=== PATIENT | female | born 1960 | race African-American/Black ===

== ENCOUNTER 2017-01-16 08:21 | Emergency (ER) | payer BC ==
[~2017-01-16] VITALS: Ht 170.2 cm; Wt 59.0 kg
[2017-01-16 08:50] VITALS: BP 124/61
[2017-01-16] MEDS ORDERED: methylPREDNISolone ACETATE 80 MG/ML VIAL. INJ ONE (09:15)
[2017-01-16] MEDS ORDERED: METH4TAB2 PO (09:18)
--- NOTE | 2017-01-16 09:32 | PHYS DOC ---
Past Medical History Past Medical History: Other Additional Past Medical Histor: eczema Past Surgical History: Hysterectomy Alcohol Use: Heavy Drug Use: None Adult General Chief Complaint Chief Complaint: SKIN PROBLEM [facility] HPI Patient is a 56 year old female who presents with severe itching to her left hand. She states that this has been somewhat chronic problem for her entire life. 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 She did remove the ring. There is erythema to her ring finger where she has been scratching. She has been diagnosed with eczema and receives care at [facility]. She does have triamcinolone cream as well as clotrimazole in the room with her. She states that she has been using these medications without relief. Review of Systems Review of Systems Constitutional: Denies fever or chills [] Respiratory: Denies cough or shortness of breath [] Cardiovascular: No additional information not addressed in HPI [] Musculoskeletal: Denies back pain or joint pain [] Integument: See history of present illness Neurologic: Denies headache, focal weakness or sensory changes [] Current Medications Current Medications Current Medications Medications (Trade) Dose Ordered Sig/Juan Manuel Start Time Stop Time Status Last Admin Dose Admin Methylprednisolone Acetate (DEPO-Medrol 80MG VIAL) 80 mg 1X ONCE 01/16/17 09:15 01/16/17 09:17 DC Allergies Allergies Allergies Coded Allergies Type Severity Reaction Last Updated Verified aspirin Allergy Intermediate 01/16/17 Yes codeine Allergy Intermediate 01/16/17 Yes Physical Exam Physical Exam Constitutional: Well developed, well nourished, no acute distress, non-toxic appearance. [] Cardiovascular:Heart rate regular rhythm, no murmur [] Lungs & Thorax: Bilateral breath sounds clear to auscultation [] Skin: Warm, dry, there is some erythema and scratching noted to the fourth digit on her left hand, the third and fifth digit are also involved with some erythema mainly to the webbing between those fingers, there is no evidence of infection or breaks in the skin, there is some thickening to the skin on her fifth digit Neurologic: Alert and oriented X 3, normal motor function, normal sensory function, no focal deficits noted. [] Psychologic: Affect normal, judgement normal, mood normal. [] Current Patient Data Vital Signs Vital Signs Date Time Temp Pulse Resp B/P (MAP) Pulse Ox O2 Delivery O2 Flow Rate FiO2 01/16/17 08:50 97.7 80 16 100 Room Air 97.7 EKG EKG [] Radiology/Procedures Radiology/Procedures [] Course & Med Decision Making Course & Med Decision Making Pertinent Labs and Imaging studies reviewed. (See chart for details) 1. Contact dermatitis with eczema The patient has been instructed to try to keep from scratching the affected area. She is to watch for signs of infection or breaks in the skin. She may continue to use her appointments from [facility]. She was given a shot of steroids in the emergency Department as well as oral steroids to continue at home. She is to keep the skin clean and dry. She is to return to [facility] in 1 week for recheck or return to the ED if worsening. [] Dragon Disclaimer Dragon Disclaimer This electronic medical record was generated, in whole or in part, using a voice recognition dictation system. Departure Departure Impression: Primary Impression: Contact dermatitis and eczema Disposition: 01 HOME, SELF-CARE Condition: STABLE Patient Instructions: Eczema, Contact Dermatitis, [id number] Additional Instructions: Follow up with [facility] if not improving within 1 week or sooner if worsening. Scripts Methylprednisolone (MEDROL) 4 Mg Tab.ds.pk 1 PKG PO UD, #1 PKG Prov: CHYNA ARAYA APRN 01/16/17 CHYNA ARAYA APRN Jan 16, 2017 09:32
== END 2017-01-16 09:47 | disposition home or self-care (01) ==
LOC: ER 08:21
DX: L25.9 Unspecified contact dermatitis, unspecified cause (principal); Z88.6 Allergy status to analgesic agent; Z88.5 Allergy status to narcotic agent
CPT/HCPCS: 96372; 99283; J1040

== ENCOUNTER 2017-09-17 14:14 | Emergency (ER) | payer BC | END 2017-09-17 14:50 | disposition home or self-care (01) | LOC: ER 14:50 | DX: B36.9 Superficial mycosis, unspecified (principal); Z88.6 Allergy status to analgesic agent; Z88.5 Allergy status to narcotic agent; Z90.710 Acquired absence of both cervix and uterus | CPT/HCPCS: 99283 ==

== ENCOUNTER 2019-03-13 00:24 | Emergency (ER) | payer SELFPAY ==
[~2019-03-13] VITALS: Ht 170.2 cm; Wt 63.5 kg
[~2019-03-13 00:24] MED LIST: CLOT15CR4 TP; METH4TAB2 PO
[2019-03-13 00:28] VITALS: BP 126/81
--- NOTE | 2019-03-13 01:04 | PHYS DOC ---
Past Medical History Past Medical History: Other Additional Past Medical Histor: eczema Past Surgical History: Hysterectomy Alcohol Use: Heavy Drug Use: None Adult General Chief Complaint Chief Complaint: KNEE SWELLING HPI HPI Patient is a 58 year old female who presents to the due to chief complaint of right knee swelling. Patient states that the swelling isn't present for the last few days. Patient states that the swelling was worse yesterday but is better today. Patient denies any injury. Review of Systems Review of Systems Constitutional: Denies fever or chills [] Eyes: Denies change in visual acuity, redness, or eye pain [] HENT: Denies nasal congestion or sore throat [] Respiratory: Denies cough or shortness of breath [] Cardiovascular: No additional information not addressed in HPI [] GI: Denies abdominal pain, nausea, vomiting, bloody stools or diarrhea [] : Denies dysuria or hematuria [] Musculoskeletal: Complains of swelling and pain in the right knee Neurologic: Denies headache, focal weakness or sensory changes [] All other systems were reviewed and found to be within normal limits, except as documented in this note. Allergies Allergies Allergies Coded Allergies Type Severity Reaction Last Updated Verified aspirin Allergy Intermediate 01/16/17 Yes codeine Allergy Intermediate 01/16/17 Yes Physical Exam Physical Exam Constitutional: Well developed, well nourished, no acute distress, non-toxic appearance. [] HENT: Normocephalic, atraumatic Eyes: PERRLA, EOMI Neck: Normal range of motion, no tenderness, supple, no stridor. [] Cardiovascular:Heart rate regular rhythm, no murmur [] Lungs & Thorax: Bilateral breath sounds clear to auscultation [] Abdomen: Soft, no tenderness Extremities: Tenderness and swelling in the right knee. Right knee stable. Neurovascularly intact. Neurologic: Alert and oriented X 3 Current Patient Data Vital Signs Vital Signs Date Time Temp Pulse Resp B/P (MAP) Pulse Ox O2 Delivery O2 Flow Rate FiO2 03/13/19 00:28 97.4 68 16 126/81 (96) 99 Room Air 97.4 EKG EKG [] Radiology/Procedures Radiology/Procedures [] Course & Med Decision Making Course & Med Decision Making Ordered x-ray of the right knee. X-rays negative, patient to follow up with orthopedic surgery. Nurse informs me that patient has eloped from the ED. X-rays in the room to take x-ray of the right knee. Dragon Disclaimer Dragon Disclaimer This electronic medical record was generated, in whole or in part, using a voice recognition dictation system. Departure Departure Referrals: NO PCP (PCP) BLANE LAWRENCE DO Mar 13, 2019 01:04
== END 2019-03-13 00:50 | disposition home or self-care (01) ==
LOC: ER 00:24
DX: R22.42 Localized swelling, mass and lump, left lower limb (principal); M25.561 Pain in right knee; Z90.710 Acquired absence of both cervix and uterus; Z88.5 Allergy status to narcotic agent; Z88.6 Allergy status to analgesic agent
CPT/HCPCS: 99281

== ENCOUNTER 2019-04-16 13:34 | Emergency (ER) | payer SELFPAY ==
[~2019-04-16] VITALS: Ht 170.2 cm; Wt 63.5 kg
[2019-04-16 14:05] VITALS: BP 110/57
[2019-04-16] MEDS ORDERED: CIPR5DRO LEFT EAR (14:31)
--- NOTE | 2019-04-16 14:31 | PHYS DOC ---
Past Medical History Past Medical History: No Pertinent History, Other Additional Past Medical Histor: eczema Past Surgical History: Hysterectomy Alcohol Use: Heavy Drug Use: None Adult General Chief Complaint Chief Complaint: EARACHE/EAR PAIN HPI HPI Patient is a 58 year old female who presents with left ear pain has been ongoing since morning. She states the ear feels muffled and is tender when he touches the ear. She rates her pain as 8 out of 10 in severity and sharp. Review of Systems Review of Systems Constitutional: Denies fever or chills [] Eyes: Denies change in visual acuity, redness, or eye pain [] HENT: Reports L ear pain. Respiratory: Denies cough or shortness of breath [] Cardiovascular: No additional information not addressed in HPI [] GI: Denies abdominal pain, nausea, vomiting, bloody stools or diarrhea [] : Denies dysuria or hematuria [] Musculoskeletal: Denies back pain or joint pain [] Integument: Denies rash or skin lesions [] Neurologic: Denies headache, focal weakness or sensory changes [] Endocrine: Denies polyuria or polydipsia [] Complete systems were reviewed and found to be within normal limits, except as documented in this note. Allergies Allergies Allergies Coded Allergies Type Severity Reaction Last Updated Verified aspirin Allergy Intermediate 01/16/17 Yes codeine Allergy Intermediate 01/16/17 Yes Physical Exam Physical Exam Constitutional: Well developed, well nourished, no acute distress, non-toxic appearance. [] HENT: Normocephalic, atraumatic, L external ear canal is erythematous with exu date, oropharynx moist, no oral exudates, nose normal. [] Eyes: PERRLA, EOMI, conjunctiva normal, no discharge. [] Neck: Normal range of motion, no tenderness, supple, no stridor. [] Skin: Warm, dry, no erythema, no rash. [] Back: No tenderness, no CVA tenderness. [] Extremities: No tenderness, no cyanosis, no clubbing, ROM intact, no edema. [] Neurologic: Alert and oriented X 3, normal motor function, normal sensory function, no focal deficits noted. [] Psychologic: Affect normal, judgement normal, mood normal. [] Current Patient Data Vital Signs Vital Signs Date Time Temp Pulse Resp B/P (MAP) Pulse Ox O2 Delivery O2 Flow Rate FiO2 11/25/19 14:05 97.8 85 16 110/57 (74) 96 Room Air 97.8 EKG EKG [] Radiology/Procedures Radiology/Procedures [] Course & Med Decision Making Course & Med Decision Making Pertinent Labs and Imaging studies reviewed. (See chart for details) Will place on Cipro drops for otitis externa. Dragon Disclaimer Dragon Disclaimer This electronic medical record was generated, in whole or in part, using a voice recognition dictation system. Departure Departure Impression: Primary Impression: Otitis externa Disposition: HOME, SELF-CARE Condition: STABLE Referrals: NO PCP (PCP) Patient Instructions: Otitis Externa Additional Instructions: Thank you for visiting [facility]. We appreciate you trusting us with your care. If any additional problems come up don't hesitate to return to visit us. Please follow up with your primary care provider so they can plan additional care if needed and know about the problem that you had. If symptoms worsen come back to the Emergency Department. Any concerning symptoms that start such as chest pain, shortness of air, weakness or numbness on one side of the body, running high fevers or any other concerning symptoms return to the ER. You have been prescribed an antibiotic today to help fight your infection. Please take all of the antibiotic as directed. If after 48 hours the infection is not improving, please return for more care. If the infection worsens, return to ER for additional care. Scripts Ciprofloxacin Hcl (CILOXAN) 5 Ml Drops 3 DROP LEFT EAR BID for 10 Days, #5 ML Prov: RAJINDER MARINO APRN 04/16/19 Problem Qualifiers Primary Impression: Otitis externa Otitis externa type: unspecified type Chronicity: acute Laterality: left Qualified Codes: H60.502 - Unspecified acute noninfective otitis externa, left ear RAJINDER MARINO APRN Apr 16, 2019 14:31
== END 2019-04-16 14:38 | disposition home or self-care (01) ==
LOC: ER 13:34
DX: H60.92 Unspecified otitis externa, left ear (principal); Z88.5 Allergy status to narcotic agent; Z88.6 Allergy status to analgesic agent; Z90.710 Acquired absence of both cervix and uterus; F10.20 Alcohol dependence, uncomplicated; Y90.9 Presence of alcohol in blood, level not specified
CPT/HCPCS: 99283

== ENCOUNTER 2019-05-17 09:17 | Emergency (ER) | payer SELFPAY ==
[~2019-05-17] VITALS: Ht 162.6 cm; Wt 63.5 kg
[~2019-05-17 09:17] MED LIST changes: +CIPR5DRO LEFT EAR
[2019-05-17 09:59] VITALS: BP 115/68
--- NOTE | 2019-05-17 10:16 | PHYS DOC ---
Past Medical History Past Medical History: No Pertinent History, Other Additional Past Medical Histor: eczema Past Surgical History: Hysterectomy Alcohol Use: Heavy Drug Use: None Adult General Chief Complaint Chief Complaint: EARACHE/EAR PAIN [facility] HPI Patient is a 58 year old female who presents to the ED today reporting she cannot hear. Patient states she was diagnosed with ear infection around 2018. She reports she was put on Cipro eardrops. She states the told her ciprodex eardrops are eyedrops. It's unknown if she has been using the medicine. She states since then she's not been able to hear. She appears restless and not following directions well like she is on something. Review of Systems Review of Systems Constitutional: Denies fever or chills [] HENT: Reports inability to hear. Denies nasal congestion or sore throat [] Respiratory: Denies cough or shortness of breath [] Cardiovascular: No additional information not addressed in HPI [] GI: Denies abdominal pain, nausea, vomiting, bloody stools or diarrhea [] : Denies dysuria or hematuria [] Musculoskeletal: Denies back pain or joint pain [] Integument: Denies rash or skin lesions [] Neurologic: Denies headache, focal weakness or sensory changes [] All other systems were reviewed and found to be within normal limits, except as documented in this note. Allergies Allergies Allergies Coded Allergies Type Severity Reaction Last Updated Verified aspirin Allergy Intermediate 01/16/17 Yes codeine Allergy Intermediate 01/16/17 Yes Physical Exam Physical Exam Constitutional: Well developed, well nourished, no acute distress, non-toxic appearance. [] HENT: Normocephalic, atraumatic, bilateral external ears normal, oropharynx moist, no oral exudates, nose normal. [] Bilateral ear canals are swollen and narrowed, TM cannot be visualized, there is crusting this in the ear,. Eyes: PERRLA, EOMI, conjunctiva normal, no discharge. [] Neck: Normal range of motion, no tenderness, supple, no stridor. [] Cardiovascular:Heart rate regular rhythm, no murmur [] Lungs & Thorax: Bilateral breath sounds clear to auscultation [] Abdomen: Bowel sounds normal, soft, no tenderness, no masses, no pulsatile masses. [] Skin: Warm, dry, no erythema, no rash. [] Back: No tenderness, no CVA tenderness. [] Extremities: No tenderness, no cyanosis, no clubbing, ROM intact, no edema. [] Neurologic: Alert and oriented X 3, normal motor function, normal sensory function, no focal deficits noted. [] Psychologic: Restless, appears to be on something EKG EKG [] Radiology/Procedures Radiology/Procedures [] Course & Med Decision Making Course & Med Decision Making Pertinent Labs and Imaging studies reviewed. (See chart for details) This is a 58-year-old female patient presented to the ED today complaining she has not been able to hear since . She was diagnosed with otitis externa around 16 April. Patient states she's not been able to hear anything since then. She is very restless and he has to be on something. She seemed not to follow directions well. I even used paper and pen to communicate with her. Informed her I would recommend she follows up with ENT and promised to give her the phone number in her discharge paperwork. She stood up and stated she doesn't have insurance to see anyone and left Dragon Disclaimer Dragon Disclaimer This electronic medical record was generated, in whole or in part, using a voice recognition dictation system. Departure Departure Impression: Primary Impression: Otitis externa Disposition: AGAINST MEDICAL ADVICE Condition: STABLE Referrals: NO PCP (PCP) Problem Qualifiers Primary Impression: Otitis externa Otitis externa type: unspecified type Chronicity: acute Laterality: bilateral Qualified Codes: H60.503 - Unspecified acute noninfective otitis externa, bilateral SHAWNEE DEL CASTILLO TOMASZ May 17, 2019 10:16
== END 2019-05-17 10:09 | disposition left against medical advice (07) ==
LOC: ER 09:17
DX: H60.503 Unspecified acute noninfective otitis externa, bilateral (principal); Z88.5 Allergy status to narcotic agent; Z88.6 Allergy status to analgesic agent
CPT/HCPCS: 99281

== ENCOUNTER 2019-11-02 00:34 | Emergency (ER) | payer SELFPAY ==
[~2019-11-02] VITALS: Ht 170.2 cm; Wt 59.1 kg
[~2019-11-02 00:34] MED LIST changes: +CLOT15CR23 TP; -CLOT15CR4 TP
[2019-11-02 01:10] VITALS: BP 131/93
--- NOTE | 2019-11-02 01:49 | PHYS DOC ---
Past Medical History Past Medical History: High Cholesterol, Hypertension Additional Past Medical Histor: eczema Past Surgical History: No Surgical History Smoking Status: Current Every Day Smoker Alcohol Use: None Drug Use: None General Adult EDM: Chief Complaint: RINGING IN EARS HPI: HPI: 59-year-old female presents the ED with complaints of difficulties hearing for the past year and a half. Reports she has been diagnosed with eczema in her ears and has an ENT appointment at [facility] in 1 month. Primary care is with [facility]. Does not take any routine medications. States she is been using [id number] carbamide peroxide 6.5%, 4 times in the past 2 weeks, with no improvement of hearing. Is not using Q-tips. States both her ears are throbbing. Review of systems: Denies associated fever, chills, drooling, sore throat, cough, hemoptysis, diaphoresis, neck pain, headache, nausea, vomiting, chest pain, dyspnea, dental pain, neck swelling, voice changes, stridor, dizziness or neurologic deficits. Review of Systems: Review of Systems: Constitutional: Denies fever or chills. [] Eyes: Denies change in visual acuity. [] HENT: Denies nasal congestion or sore throat. [] Respiratory: Denies cough or shortness of breath. [] Cardiovascular: Denies chest pain or edema. [] GI: Denies abdominal pain, nausea, vomiting, bloody stools or diarrhea. [] : Denies dysuria. [] Musculoskeletal: Denies back pain or joint pain. [] Integument: Denies rash. [] Neurologic: Denies headache, focal weakness or sensory changes. [] Endocrine: Denies polyuria or polydipsia. [] Lymphatic: Denies swollen glands. [] Psychiatric: Denies depression or anxiety. [] Allergies: Allergies: Allergies Coded Allergies Type Severity Reaction Last Updated Verified aspirin Allergy Intermediate 01/16/17 Yes codeine Allergy Intermediate 01/16/17 Yes Physical Exam: PE: Constitutional: Well developed, well nourished, no acute distress, non-toxic appearance. [] HENT: Normocephalic, atraumatic, bilateral external ears normal, oropharynx moist, no oral exudates, nose normal, odorous white sediment in right ear canal easily removed, left ear w/cerumen impactin Eyes: EOMI, conjunctiva normal, no discharge. [] Neck: Normal range of motion, no tenderness, supple, no stridor. [] Cardiovascular:Heart rate regular rhythm, no murmur [] Lungs & Thorax: Bilateral breath sounds clear to auscultation [] Abdomen: Bowel sounds normal, soft, no tenderness, no masses, no pulsatile masses. [] Skin: Warm, dry, no erythema, no rash. [] Back: No tenderness, no CVA tenderness. [] Extremities: No tenderness, no cyanosis, no clubbing, ROM intact, no edema. [] Neurologic: Alert and oriented X 3, normal motor function, normal sensory function, no focal deficits noted. [] Psychologic: Affect normal, judgement normal, mood normal. [] Current Patient Data: Vital Signs: Vital Signs Date Time Temp Pulse Resp B/P (MAP) Pulse Ox O2 Delivery O2 Flow Rate FiO2 11/02/19 01:10 97.8 101 22 131/93 (106) 98 Room Air 97.8 EKG: EKG: [] Radiology/Procedures: Radiology/Procedures: [] Impression: Concern for bilateral cerumen impaction impaction. Right ear easily removed with magnified lighted curette. RN irrigated left ear with successful cerumen disimpaction. TMs visualized with no erythema. Patient reports hearing loss was resolved and she can hear normally again. There is some irritation of the ear canals but no concern for increased vascularization or infection. Patient's pain is resolved. Patient has follow-up with [facility] in 1 month. I encouraged this appointment. Strict ED return precautions were given for fever chills or worsening ear pain. Also encouraged PMD follow-up. All of patient's questions were answered and she was stable at time of discharge. Course & Med Decision Making: Course & Med Decision Making Pertinent Labs and Imaging studies reviewed. (See chart for details) [] Dragon Disclaimer: Dragon Disclaimer: This electronic medical record was generated, in whole or in part, using a voice recognition dictation system. Departure Departure Impression: Primary Impression: Impacted cerumen of both ears Disposition: HOME, SELF-CARE Condition: GOOD Referrals: UNKNOWN PCP NAME (PCP) Patient Instructions: Cerumen Impaction Justicifation of Admission Dx: Justifications for Admission: Justification of Admission Dx: N/A YASMIN HOPPER DO Nov 02, 2019 01:49
== END 2019-11-02 02:15 | disposition home or self-care (01) ==
LOC: ER 00:34
DX: H61.23 Impacted cerumen, bilateral (principal); E78.00 Pure hypercholesterolemia, unspecified; I10 Essential (primary) hypertension; F17.200 Nicotine dependence, unspecified, uncomplicated; Z88.5 Allergy status to narcotic agent; Z88.6 Allergy status to analgesic agent
CPT/HCPCS: 69210; 99284

== ENCOUNTER 2020-03-04 14:53 | Emergency (ER) | payer SELFPAY ==
[~2020-03-04] VITALS: Ht 170.2 cm; Wt 67.9 kg
[2020-03-04 15:10] VITALS: BP 135/76
--- NOTE | 2020-03-04 15:56 | RAD ---
CT scan of the head without contrast 03/04/2020 Clinical History: Left mastoid pain. Technique: Unenhanced, contiguous, 5 mm axial sections were obtained through the head. One or more of the following individualized dose reduction techniques were utilized for this study: 1. Automated exposure control. 2. Adjustment of the mA and/or kV according to patient size. 3. Use of iterative reconstruction technique. Findings: There is generalized parenchymal atrophy. Areas of decreased attenuation are seen within the periventricular and subcortical white matter of both cerebral hemispheres consistent with areas of small vessel ischemic disease. No acute parenchymal abnormality is seen. No extra-axial fluid collection is noted. No skull fracture is seen. The paranasal sinuses are essentially clear. The mastoid air cells and middle ear cavities are well aerated and are clear. Impression: No acute abnormality is seen. Electronically signed by: Irwin Reilly MD (03/04/2020 3:53 PM) [id number]
--- NOTE | 2020-03-04 16:09 | PHYS DOC ---
Past Medical History Past Medical History: High Cholesterol, Hypertension, Other Additional Past Medical Histor: eczema (SHANTA CHUNG APRN) Past Surgical History: No Surgical History (SHANTA CHUNG APRN) Smoking Status: Current Every Day Smoker Alcohol Use: None Drug Use: None (SHANTA CHUNG APRN) General Adult EDM: Chief Complaint: EARACHE/EAR PAIN HPI: HPI: Patient is a 59 year old AA female who presents to the emergency department with complaints of bilateral ear pain and pain behind her left ear for over a week. Patient reports that she has been irrigating her left ear with peroxide and water has gotten a large amount of debris out of her ear. She denies any purulent drainage or bleeding from either of her ears. She denies any fever, cough, nasal congestion, headache, shortness of breath, nausea, vomiting, diarrhea, or dizziness. Patient reports that she saw her primary care doctor for this and he encouraged her to see a brush clearing laborer. (SHANTA CHUNG APRN) Review of Systems: Review of Systems: Constitutional: Denies fever or chills. [] Eyes: Denies change in visual acuity. [] HENT: Denies nasal congestion or sore throat; see HPI. [] Respiratory: Denies cough or shortness of breath. [] Cardiovascular: Denies chest pain or edema. [] GI: Denies abdominal pain, nausea, vomiting, or diarrhea. [] Musculoskeletal: Denies back pain or joint pain. [] Integument: Denies rash. [] Neurologic: Denies headache Lymphatic: Denies swollen glands. [] Psychiatric: Denies depression or anxiety. [] (SHANTA CHUNG APRN) Heart Score: Risk Factors: Risk Factors: DM, Current or recent (<one month) smoker, HTN, HLP, family history of CAD, obesity. Risk Scores: Score 0 - 3: 2.5% MACE over next 6 weeks - Discharge Home Score 4 - 6: 20.3% MACE over next 6 weeks - Admit for Clinical Observation Score 7 - 10: 72.7% MACE over next 6 weeks - Early Invasive Strategies (SHANTA CHUNG APRN) Allergies: Allergies: Allergies Coded Allergies Type Severity Reaction Last Updated Verified aspirin Allergy Intermediate 01/16/17 Yes codeine Allergy Intermediate 01/16/17 Yes (SHANTA CHUNG APRN) Physical Exam: PE: Constitutional: Well developed, well nourished, no acute distress, non-toxic appearance. [] HENT: Normocephalic, atraumatic, bilateral external ears normal, bilateral TMs normal, nose normal; right ear canal appears normal without erythema, discharge, or edema; left ear canal is mildly edematous with fluffy white debris in the canal consistent with history of recent irrigation with peroxide, no concerns of otitis externa. Right mastoid is nontender to touch, left mastoid tender to touch without erythema, warm or edema [] Eyes: PERRLA, EOMI, conjunctiva normal, no discharge. [] Neck: Normal range of motion, supple, nontender, no stridor. [] Cardiovascular:Heart rate regular rhythm Lungs & Thorax: Respirations even and unlabored, no retractions, no respiratory distress Skin: Warm, dry, no erythema, no rash. [] Extremities: No cyanosis, ROM intact, no edema. [] Neurologic: Alert and oriented X 3, no focal deficits noted. [] Psychologic: Affect normal, judgement normal, mood normal. [] (SHANTA CHUNG APRN) Current Patient Data: Vital Signs: Vital Signs Date Time Temp Pulse Resp B/P (MAP) Pulse Ox O2 Delivery O2 Flow Rate FiO2 03/04/20 15:10 97.4 80 135/76 (95) 96 Room Air 97.4 03/04/20 14:58 18 (SHANTA CHUNG APRN) EKG: EKG: [] (SHANTA CHUNG APRN) Radiology/Procedures: Radiology/Procedures: ROCEDURE: CT HEAD WO CONTRAST CT scan of the head without contrast 03/04/2020 Clinical History: Left mastoid pain. Technique: Unenhanced, contiguous, 5 mm axial sections were obtained through the head. One or more of the following individualized dose reduction techniques were utilized for this study: 1. Automated exposure control. 2. Adjustment of the mA and/or kV according to patient size. 3. Use of iterative reconstruction technique. Findings: There is generalized parenchymal atrophy. Areas of decreased attenuation are seen within the periventricular and subcortical white matter of both cerebral hemispheres consistent with areas of small vessel ischemic disease. No acute parenchymal abnormality is seen. No extra-axial fluid collection is noted. No skull fracture is seen. The paranasal sinuses are essentially clear. The mastoid air cells and middle ear cavities are well aerated and are clear. Impression: No acute abnormality is seen. [] (SHANTA CHUNG APRN) Course & Med Decision Making: Course & Med Decision Making Pertinent Labs and Imaging studies reviewed. (See chart for details) [] (SHANTA CHUNG APRN) Course & Med Decision Making I have reviewed the PA/LOG FEEDER's note and Plan of Care. I was available for consultation as needed during the patient's visit in the emergency department. I agree with the clinical impression, plans and disposition. (SULEMA MOSQUEDA MD) Dragon Disclaimer: Dragon Disclaimer: This electronic medical record was generated, in whole or in part, using a voice recognition dictation system. (SHANTA CHUNG APRN) Departure Departure Impression: Primary Impression: Otalgia, bilateral Disposition: 01 DC HOME SELF CARE/HOMELESS Condition: STABLE Referrals: UNKNOWN PCP NAME (PCP) PAULO DC MD Patient Instructions: Otalgia-Brief Additional Instructions: Recommend taking Tylenol or ibuprofen as needed for pain. You may also take an oral nasal decongestant such as sudafed and/or a daily antihistamine such as Claritin/Karen/Zyrtec to help with the discomfort in your ear. Discontinue use of Q-tips, I would stop irrigation with peroxide and water. Follow-up with ear nose and throat doctor, Dr. Dc's information has been provided for follow-up. Return to the ER if symptoms worsen or you develop a fever. SHANTA CHUNG APRN Mar 04, 2020 16:09 SULEMA MOSQUEDA MD Mar 04, 2020 17:06
== END 2020-03-04 16:25 | disposition home or self-care (01) ==
LOC: ER 14:53
DX: H92.03 Otalgia, bilateral (principal); R51.9 Headache, unspecified; E78.00 Pure hypercholesterolemia, unspecified; I10 Essential (primary) hypertension; F17.200 Nicotine dependence, unspecified, uncomplicated
CPT/HCPCS: 70450; 99284

== ENCOUNTER 2020-03-21 09:02 | Emergency (ER) | payer SELFPAY ==
[~2020-03-21] VITALS: Ht 170.2 cm; Wt 73.1 kg
[2020-03-21 10:13] LABS: BASO # 0.1 x10^3/uL (0.0-0.2); BASO % 1 % (0-3); EOS # 0.1 x10^3/uL (0.0-0.7); EOS % 1 % (0-3); HEMATOCRIT 41.4 % (36.0-47.0); LYMPH # 1.2 x10^3/uL (1.0-4.8); LYMPH % 28 % (24-48); MEAN CORPUSCULAR HEMOGLOBIN 29 pg (25-35); MEAN CORPUSCULAR HGB CONC 34 g/dL (31-37); MEAN CORPUSCULAR VOLUME 86 fL (79-100); MONO # 0.5 x10^3/uL (0.0-1.1); MONO % 12 % (0-9); NEUT # 2.4 x10^3/uL (1.8-7.7); NEUT % 57 % (31-73); PLATELET COUNT 228 x10^3/uL (140-400); RED BLOOD COUNT 4.82 x10^6/uL (3.50-5.40); RED CELL DISTRIBUTION WIDTH 14.5 % (11.5-14.5); WHITE BLOOD COUNT 4.2 x10^3/uL (4.0-11.0)
[2020-03-21 10:21] LABS: CALCIUM 9.3 mg/dL (8.5-10.1); GFR 68.9
[2020-03-21 10:24] LABS: C-REACTIVE PROTEIN 5.5 mg/L (0-3.3)
[2020-03-21] MEDS ORDERED: CONTRAST GIVEN. MC PRN (10:30)
[2020-03-21] MEDS ORDERED: IOHEXOL 300 MG/ML 100ML VIAL. IV ONE ×2 (10:30→11:00)
[2020-03-21 11:20] VITALS: BP 151/68
--- NOTE | 2020-03-21 11:22 | RAD ---
PQRS Compliance Statement: One or more of the following individualized dose reduction techniques were utilized for this examination: 1. Automated exposure control 2. Adjustment of the mA and/or kV according to patient size 3. Use of iterative reconstruction technique CT MAXILLOFACIAL W/CONTRAST 03/21/2020 9:40 AM Indication: Bilateral ear pain, mastoiditis COMPARISON: None available. TECHNIQUE: Multiple axial CT images of the maxillofacial structures were obtained after the intravenous administration of 70 cc Omnipaque 300. Coronal and sagittal reformats are provided. FINDINGS: No suspicious enhancement is identified within the visualized portions of brain parenchyma and posterior fossa. Visualized teller of Pastor appears intact. Orbits are normal in appearance.. Globes are spherical and contour. Optic nerves are normal. Extraocular muscles are intact. No intraorbital or retro-orbital soft tissue abnormality. Mild mucosal thickening of the right maxillary sinus. Nasal septum is minimally deviated to the right. Ostiomeatal units are widely patent. Temporomandibular joints are well aligned. Skull base appears intact. Maxilla and mandible are intact. Carotid spaces, caretaker grounds space and oral cavity are normal in appearance. Nasopharynx, oropharynx and hypopharynx appear normal. Parapharyngeal fat is preserved. The mandibular spaces are normal. There is soft tissue identified within the left external auditory canal which may represent cerumen impaction. There may be soft tissue within the left hypotympanum. Mastoids are well aerated bilaterally. Minimal debris noted in the right external auditory canal. No osseous erosions are identified. IMPRESSION: 1. There is soft tissue within the left external auditory canal which may reflect cerumen impaction. Correlate with direct visualization. There may be minimal soft tissue in the left hypotympanum which could be associated with middle ear infection versus cholesteatoma. No osseous erosions are identified. 2. Mastoid air cells are well aerated. Electronically signed by: Jenna Peterson MD (03/21/2020 11:19 AM) [id number]
[2020-03-21] MEDS ORDERED: AMOX1TAB61 PO (11:41)
--- NOTE | 2020-03-21 11:42 | PHYS DOC ---
Past Medical History Past Medical History: Other Additional Past Medical Histor: eczema Past Surgical History: Hysterectomy Smoking Status: Current Every Day Smoker Additional Information: 1 ppd Alcohol Use: Occasionally Drug Use: None General Adult EDM: Chief Complaint: EARACHE/EAR PAIN HPI: HPI: 59-year-old female past medical history of hypertension, hyperlipidemia and eczema, presents to the ED with complaints of left ear pain that is been present for the past year with complete hearing loss. Patient states she has been to her primary care physician, DARBY in this emergency department with no relief for the past year. Has no insurance to pay for outpatient co-pay for ENT follow-up. States she was referred to ENT, Dr. Keli Wright, but her clinic is in [facility] and pt states this is "too far," she does not have a vehicle. Patient reports she has been advised to irrigate her ears and has been prescribed multiple medications over the past year-has a syringe with her but states ear irrigation makes her pain worse.. Medications are with her which includes otic ciprofloxacin in March 2019, Cortisporin in May 2019, and acetic acid in July 2019. EMR was reviewed and patient was seen in March [address] head that showed normal mastoid air cells. Was advised that time to discontinue Q-tips. Review of Systems: Review of Systems: Constitutional: Denies fever or chills. [] Eyes: Denies change in visual acuity or vision loss HENT: Denies nasal congestion or sore throat, anterior posterior neck pain, tinnitus, ear discharge/redness/rash or mastoid ttp, no sinus pressure Respiratory: Denies cough or shortness of breath or hemoptysis Cardiovascular: Denies chest pain or edema or syncope GI: Denies abdominal pain, nausea, vomiting, bloody stools or diarrhea. [] : Denies dysuria. [] Musculoskeletal: Denies back pain or joint pain. [] Integument: Denies rash. [] Neurologic: Denies headache, focal weakness or sensory changes, dizziness or seizures or facial droop Endocrine: Denies polyuria or polydipsia. [] Lymphatic: Denies swollen glands. [] Psychiatric: Denies depression or anxiety. [] Heart Score: Risk Factors: Risk Factors: DM, Current or recent (<one month) smoker, HTN, HLP, family history of CAD, obesity. Risk Scores: Score 0 - 3: 2.5% MACE over next 6 weeks - Discharge Home Score 4 - 6: 20.3% MACE over next 6 weeks - Admit for Clinical Observation Score 7 - 10: 72.7% MACE over next 6 weeks - Early Invasive Strategies Current Medications: Current Medications Medications (Trade) Dose Ordered Sig/Juan Manuel Start Time Stop Time Status Last Admin Dose Admin Info (CONTRAST GIVEN -- Rx MONITORING) 1 each PRN DAILY PRN 03/21/20 10:30 03/23/20 10:29 Iohexol (Omnipaque 300 Mg/ml) 70 ml 1X ONCE 03/21/20 11:00 03/21/20 11:01 Cancel Allergies: Allergies: Allergies Coded Allergies Type Severity Reaction Last Updated Verified aspirin Allergy Intermediate 01/16/17 Yes codeine Allergy Intermediate 01/16/17 Yes Physical Exam: PE: Constitutional: Well developed, well nourished, no acute distress, non-toxic appearance. [] HENT: Normocephalic, atraumatic, large white/nonmobile, clumpy mass in ear canal-cannot appreciate tm, no erythema/discharge, no mastoid ttp, no auricular crease obliteration Eyes: EOMI, conjunctiva normal, no discharge. [] Neck: Normal range of motion, no tenderness, supple, no rigidity Cardiovascular: S1-S2 present Lungs & Thorax: Bilateral equal chest rise, speaking in full sentences Abdomen: soft, no tenderness, Skin: Warm, dry, no erythema, no rash. [] Extremities: No tenderness, ROM intact, no edema. [] Neurologic: Alert and oriented X 3, normal motor function, normal sensory function, no focal deficits noted. [] Psychologic: Affect normal, judgement normal, mood -very frustrated and states "I'm not leaving here until I get an answer" Current Patient Data: Labs: Laboratory Tests Test 03/21/20 09:50 White Blood Count 4.2 x10^3/uL (4.0-11.0) Red Blood Count 4.82 x10^6/uL (3.50-5.40) Hemoglobin 14.0 g/dL (12.0-15.5) Hematocrit 41.4 % (36.0-47.0) Mean Corpuscular Volume 86 fL (79-100) Mean Corpuscular Hemoglobin 29 pg (25-35) Mean Corpuscular Hemoglobin Concent 34 g/dL (31-37) Red Cell Distribution Width 14.5 % (11.5-14.5) Platelet Count 228 x10^3/uL (140-400) Neutrophils (%) (Auto) 57 % (31-73) Lymphocytes (%) (Auto) 28 % (24-48) Monocytes (%) (Auto) 12 % (0-9) H Eosinophils (%) (Auto) 1 % (0-3) Basophils (%) (Auto) 1 % (0-3) Neutrophils # (Auto) 2.4 x10^3/uL (1.8-7.7) Lymphocytes # (Auto) 1.2 x10^3/uL (1.0-4.8) Monocytes # (Auto) 0.5 x10^3/uL (0.0-1.1) Eosinophils # (Auto) 0.1 x10^3/uL (0.0-0.7) Basophils # (Auto) 0.1 x10^3/uL (0.0-0.2) Sodium Level 140 mmol/L (136-145) Potassium Level 4.0 mmol/L (3.5-5.1) Chloride Level 105 mmol/L (98-107) Carbon Dioxide Level 20 mmol/L (21-32) L Anion Gap 15 (6-14) H Blood Urea Nitrogen 12 mg/dL (7-20) Creatinine 1.0 mg/dL (0.6-1.0) Estimated GFR (Cockcroft-Gault) 68.9 Glucose Level 149 mg/dL (70-99) H Calcium Level 9.3 mg/dL (8.5-10.1) C-Reactive Protein, Quantitative 5.5 mg/L (0-3.3) H Laboratory Tests 03/21/20 09:50 Laboratory Tests 03/21/20 09:50 Vital Signs: Vital Signs Date Time Temp Pulse Resp B/P (MAP) Pulse Ox O2 Delivery O2 Flow Rate FiO2 03/21/20 11:20 65 18 151/68 (95) 99 Room Air 03/21/20 09:14 98.6 98.6 EKG: EKG: [] Radiology/Procedures: Radiology/Procedures: []IMAGING REPORT Signed PATIENT: MARIELARPITAGera Carlos Alberto ACCOUNT: [id number] : 1960 LOCATION: ER AGE: 59 SEX: F EXAM STATUS: REG ER ORD. PHYSICIAN: YASMIN HOPPER DO REASON: bl ear pain, mastoiditis? PROCEDURE: CT MAXILLOFACIAL W/CONTRAST PQRS Compliance Statement: One or more of the following individualized dose reduction techniques were utilized for this examination: 1. Automated exposure control 2. Adjustment of the mA and/or kV according to patient size 3. Use of iterative reconstruction technique CT MAXILLOFACIAL W/CONTRAST 03/21/2020 9:40 AM Indication: Bilateral ear pain, mastoiditis COMPARISON: None available. TECHNIQUE: Multiple axial CT images of the maxillofacial structures were obtained after the intravenous administration of 70 cc Omnipaque 300. Coronal and sagittal reformats are provided. FINDINGS: No suspicious enhancement is identified within the visualized portions of brain parenchyma and posterior fossa. Visualized teller of Pastor appears intact. Orbits are normal in appearance.. Globes are spherical and contour. Optic nerves are normal. Extraocular muscles are intact. No intraorbital or retro-orbital soft tissue abnormality. Mild mucosal thickening of the right maxillary sinus. Nasal septum is minimally deviated to the right. Ostiomeatal units are widely patent. Temporomandibular joints are well aligned. Skull base appears intact. Maxilla and mandible are intact. Carotid spaces, line puller space and oral cavity are normal in appearance. Nasopharynx, oropharynx and hypopharynx appear normal. Parapharyngeal fat is preserved. The mandibular spaces are normal. There is soft tissue identified within the left external auditory canal which may represent cerumen impaction. There may be soft tissue within the left hypotympanum. Mastoids are well aerated bilaterally. Minimal debris noted in the right external auditory canal. No osseous erosions are identified. IMPRESSION: 1. There is soft tissue within the left external auditory canal which may reflect cerumen impaction. Correlate with direct visualization. There may be minimal soft tissue in the left hypotympanum which could be associated with middle ear infection versus cholesteatoma. No osseous erosions are identified. 2. Mastoid air cells are well aerated. Electronically signed by: Alfonso Beach MD (03/21/2020 11:19 AM) [id number] DICTATED and SIGNED BY: ALFONSO BEACH MD DATE: 03/21/20 1119 Course & Med Decision Making: Course & Med Decision Making Pertinent Labs and Imaging studies reviewed. (See chart for details) Concern for left ear pain with chronic hearing loss, symptoms present for more than 1 year. Exam consistent with cholesteatoma (white material in canal-cannot visualize TM) but given CT findings will treat for otitis media given risk of chronic infections. Pt states pain is worsened when she irrigates her ear that she does frequently every other day-I recommend against irrigation at this time. Denies any Q-tip use. Unfortunately symptoms have gone untreated with no specialist care-may have permanent hearing loss. Patient does not have insurance. I encouraged her to follow-up at [facility] or [facility] and to discuss financial options so that she can obtain specialist care. Strict ED return precautions were given for headache, fever, neck stiffness or neurologic deficits (meningitis or brain abscess symptoms). Encouraged patient to establish insurance and offered SW consult in ed. Patient with no associated tinnitus, dizziness or neurologic deficits-strict ED return precautions were given. Encouraged urgent outpatient follow-up with PMD and ENT. Life-threatening processes were considered but are low suspicion at this time, given history and physical exam. Pt was educated on all prescription medications and adverse effects. All patient's questions were answered and pt was stable at time of discharge. Life/limb-threatening differential includes but is not limited to, auricular hematoma or perichondritis, malignant otitis externa, otitis externa or media, otomycosis, bullous myringitis, mastoiditis, hearing loss or vestibular disor royal, tympanic membrane rupture, herpes zoster oticus, contact dermatitis or cholesteatoma, meningitis, brain abscess, cerebral/venous/cavernous sinus thrombosis. I spoken with the patient and her caregivers. I explained the patient's condition, diagnoses and treatment plan based on the information available to me at this time. I have answered the patient and her caregiver's questions and addressed any concerns. The patient and her caregivers have a good understanding of patient's diagnosis, condition and treatment plan as can be expected at this point. Vital signs have been stable. Patient's condition is stable and appropriate for discharge from the emergency department. Patient will pursue further outpatient evaluation with primary care physician or other designated or consulting physician as outlined in the discharge instructions. The patient and/or caregivers are agreeable to this plan of care and follow-up instructions have been explained in detail. The patient and/or caregivers have received these instructions in written form and have expressed an understanding of the discharge instructions. The patient and/or caregivers are aware that any significant change of condition or worsening of symptoms should prompt immediate return to this or the closest emergency department or call to [email or web address] Disclaimer: Dragwillie Disclaimer: This electronic medical record was generated, in whole or in part, using a voice recognition dictation system. Departure Departure Impression: Primary Impression: Chronic left ear pain Disposition: 01 DC HOME SELF CARE/HOMELESS Condition: STABLE Referrals: UNKNOWN PCP NAME (PCP) FOLLOW UP WITH FAMILY MEDICINE: Family Medicine Address: [address] [place] [address] Patient Instructions: Hearing Loss, Otalgia Additional Instructions: YOU EXAM IS CONCERNING FOR CHOLESTEATOMA-Sac of skin cells growing in middle ear on out of surface of TM, Can destroy ossicles and expand into mastoid, often chronically infected with intermittent drainage, TREATMENT IS SURGICAL Dr. Val Sanchez MD or Dr. Liyah George MD Otolaryngology (ENT) [address] [place], [place] [id number] OR [facility]NT [address] [place] [address] EMERGENCY DEPARTMENT GENERAL DISCHARGE INSTRUCTIONS Thank you for coming to [facility] Emergency Department (ED) today and trusting us with you care. We trust that you had a positive experience in our Emergency Department. If you wish to speak to the department management, you may call the Director at [phone]. YOUR FOLLOW UP INSTRUCTIONS ARE FOLLOWS: 1. Do you have a private Doctor? If you do not have a private doctor, please ask for a resource list of physicians or clinics that may be able to assist you with follow up care. 2. The Emergency Physicain has interpreted your x-rays. The X-Ray specialist will also review them. If there is a change in the findings, you will be notified in 48 hours when at all possible. 3. A lab test or culture has been done, your results will be reviewed and you will be notified if you need a change in treatment. ADDITIONAL INSTRUCTIONS AND INFORMATION: 1. Your care today has been supervised by a physician who is specially trained in emergency care. Many problems require more than one evaluation for a complete diagnosis and treatment. We recommend that you schedule your follow up appointment as recommended to ensure complete treatment of you illness or injury. If you are unable to obtain follow up care and continue to have a problem, or if your condition worsens, we recommend that you return to the ED. 2. We are not able to safely determine your condition over the phone nor are we able to give sound medical advice over the phone. For these safety reasons, if you call for medical advice we will ask you to come to the ED for further evaluation. 3. If you have any questions regarding these discharge instructions please call the ED at [phone]. SAFETY INFORMATION: In the interest of safety, wellness, and injury prevention; we encourage you to wear your sealbelt, if you smoke; quite smoking, and we encourage family to use a protective helmet for bicycling and other sporting events that present an increased risk for head injury. IF YOUR SYMPTOMS WORSEN OR NEW SYMPTOMS DEVELOP, OR YOU HAVE CONCERNS ABOUT YOUR CONDITION; OR IF YOUR CONDITION WORSENS WHILE YOU ARE WAITING FOR YOUR FOLLOW UP APPOINTMENT; EITHER CONTACT YOUR PRIMARY CARE DOCTOR, THE PHYSICIAN WHOSE NAME AND NUMBER YOU WERE GIVEN, OR RETURN TO THE ED IMMEDIATELY. Scripts Amoxicillin/Potassium Clav (AUGMENTIN 875-125 TABLET) 1 Each Tablet 1 TAB PO Q12HR for 14 Days, #28 TAB Prov: YASMIN HOPPER DO 03/21/20 YASMIN HOPPER DO Mar 21, 2020 11:42
== END 2020-03-21 11:51 | disposition home or self-care (01) ==
LOC: ER 09:02
DX: G89.29 Other chronic pain (principal); H92.02 Otalgia, left ear; H91.92 Unspecified hearing loss, left ear; I10 Essential (primary) hypertension; F17.200 Nicotine dependence, unspecified, uncomplicated; Z90.710 Acquired absence of both cervix and uterus; Z88.5 Allergy status to narcotic agent; Z88.8 Allergy status to other drugs, medicaments and biological substances
CPT/HCPCS: 36415; 70487; 80048; 85025; 86140; 99285; Q9967

== ENCOUNTER 2020-12-31 10:37 | Emergency (ER) | payer SELFPAY ==
[~2020-12-31] VITALS: Ht 160 cm; Wt 67.0 kg
[~2020-12-31 10:37] MED LIST changes: +AMOX1TAB61 PO
[2020-12-31 11:02] VITALS: BP 129/82
--- NOTE | 2020-12-31 11:19 | PHYS DOC ---
Past Medical History Past Medical History: Other Additional Past Medical Histor: eczema Past Surgical History: Hysterectomy Smoking Status: Current Every Day Smoker Alcohol Use: Occasionally Drug Use: None General Adult EDM: Chief Complaint: SORE THROAT HPI: HPI: Patient is a 60 year old female who present to ER for evaluation of sore throat for 5 days. Patient denies any cough or fever. Patient denies any neck pain, no headache, no nausea vomiting, no abdominal pain. Patient says she was vaccinated for COVID-19 at the end of September. Patient says she was not exposed to anybody with COVID-19 infection. Patient described the pain as sharp pain, hurts worse with swallowing. Review of Systems: Review of Systems: Constitutional: Denies fever or chills. [] Eyes: Denies change in visual acuity. [] HENT: Denies nasal congestion, positive for sore throat Respiratory: Denies cough or shortness of breath. [] Cardiovascular: Denies chest pain or edema. [] GI: Denies abdominal pain, nausea, vomiting, bloody stools or diarrhea. [] : Denies dysuria. [] Musculoskeletal: Denies back pain or joint pain. [] Integument: Denies rash. [] Neurologic: Denies headache, focal weakness or sensory changes. [] Endocrine: Denies polyuria or polydipsia. [] Lymphatic: Denies swollen glands. [] Psychiatric: Denies depression or anxiety. [] Heart Score: C/O Chest Pain: N/A Risk Factors: Risk Factors: DM, Current or recent (<one month) smoker, HTN, HLP, family history of CAD, obesity. Risk Scores: Score 0 - 3: 2.5% MACE over next 6 weeks - Discharge Home Score 4 - 6: 20.3% MACE over next 6 weeks - Admit for Clinical Observation Score 7 - 10: 72.7% MACE over next 6 weeks - Early Invasive Strategies Current Medications: Current Medications Medications (Trade) Dose Ordered Sig/Juan Manuel Start Time Stop Time Status Last Admin Dose Admin Penicillin G Benzathine (Bicillin L-A) 1,200,000 unit 1X ONCE 12/31/20 11:30 12/31/20 11:31 UNV Allergies: Allergies: Allergies Coded Allergies Type Severity Reaction Last Updated Verified aspirin Adverse Reaction Intermediate nausea, vomiting 12/31/20 Yes codeine Adverse Reaction Intermediate nausea, vomiting 12/31/20 Yes Physical Exam: PE: Constitutional: Well developed, well nourished, no acute distress, non-toxic appearance. [] HENT: Normocephalic, atraumatic, bilateral external ears normal, oropharyngeal area with erythema, most on the right side , no oral exudates, nose normal. Uvula is midline, no trismus Eyes: PERRLA, EOMI, conjunctiva normal, no discharge. [] Neck: Normal range of motion, no tenderness, supple, no stridor. [] Cardiovascular:Heart rate regular rhythm, no murmur [] Lungs & Thorax: Bilateral breath sounds clear to auscultation [] Abdomen: Bowel sounds normal, soft, no tenderness, no masses, no pulsatile masses. [] Skin: Warm, dry, no erythema, no rash. [] Back: No tenderness, no CVA tenderness. [] Extremities: No tenderness, no cyanosis, no clubbing, ROM intact, no edema. [] Neurologic: Alert and oriented X 3, normal motor function, normal sensory function, no focal deficits noted. [] Psychologic: Affect normal, judgement normal, mood normal. [] Current Patient Data: Vital Signs: Vital Signs Date Time Temp Pulse Resp B/P (MAP) Pulse Ox O2 Delivery O2 Flow Rate FiO2 12/31/20 11:02 98.5 75 20 129/82 (95) 98 Room Air 98.5 EKG: EKG: [] Radiology/Procedures: Radiology/Procedures: [] Course & Med Decision Making: Course & Med Decision Making Pertinent Labs and Imaging studies reviewed. (See chart for details) [] Crow Disclaimer: Crow Disclaimer: This electronic medical record was generated, in whole or in part, using a voice recognition dictation system. Departure Departure Impression: Primary Impression: Pharyngitis Disposition: HOME / SELF CARE / HOMELESS Condition: STABLE Referrals: UNKNOWN PCP NAME (PCP) Follow up with your doctor as needed Patient Instructions: Viral and Bacterial Pharyngitis Additional Instructions: Thank you for visiting our Emergency Department. We appreciate you trusting us with your care. If any additional problems come up don't hesitate to return to visit us. Please follow up with your primary care provider so they can plan additional care if needed and know about the problem that you had. If symptoms worsen come back to the Emergency Department. Any concerning symptoms that start such as chest pain, shortness of air, weakness or numbness on one side of the body, running high fevers or any other concerning symptoms return to the ER. RORO GAMBOA DO Dec 31, 2020 11:19
[2020-12-31] MEDS ORDERED: PENICILLIN G BENZATHINE LA 1,200,000 UNIT/2 ML DISP.SYRIN. IM ONE (11:30)
== END 2020-12-31 11:35 | disposition home or self-care (01) ==
LOC: ER 10:37
DX: J02.9 Acute pharyngitis, unspecified (principal); F17.200 Nicotine dependence, unspecified, uncomplicated; Z88.5 Allergy status to narcotic agent; Z88.6 Allergy status to analgesic agent
CPT/HCPCS: 96372; 99283; J0561